=== PATIENT | female | born 1980 | race Caucasian/White ===

== ENCOUNTER 2025-04-14 07:11 | Day surgery (SDC) | payer OTHER ==
[2025-04-13 14:32] VITALS: BMI 28.3
[2025-04-14] MEDS ORDERED: Lidocaine 1% (PF) 30 ML VIAL ONE (08:27)
[2025-04-14] MEDS ORDERED: Ropivacaine 0.2% HCl/PF 20 ML ONE (08:27)
[2025-04-14] MEDS ORDERED: Ropivacaine 0.5% HCl/PF (150 MG/30 ML VIAL) ONE (08:27)
[2025-04-14] MEDS ORDERED: CEFAZOLIN 2 GM VIAL ONE (08:42)
[2025-04-14] MEDS ORDERED: fentaNYL PF 100 MCG/2 ML SYRINGE ONE (09:15)
[2025-04-14] MEDS ORDERED: Lidocaine 1% PF 5 ML VIAL ONE (09:15)
[2025-04-14] MEDS ORDERED: PROPOFOL 20 ML ONE (09:15)
[2025-04-14] MEDS ORDERED: Rocuronium Bromide 10 MG/ML (10ML VIAL) ONE (09:15)
[2025-04-14] MEDS ORDERED: Bupivacaine 0.25% HCL 30 ML VIAL ONE (09:19)
[2025-04-14] MEDS ORDERED: Ondansetron PF 4 MG/2 ML Vial ONE (09:20)
[2025-04-14] MEDS ORDERED: HYDROcodone/Acetaminophen 10/325 mg Tablet PO PRN ×2 (09:30)
[2025-04-14] MEDS ORDERED: Ondansetron PF 4 MG/2 ML Vial IVP PRN (09:30)
[2025-04-14] MEDS ORDERED: Ropivacaine 0.2% 550 ML 550 ML NERVE BLCK SCH (09:30)
[2025-04-14] MEDS ORDERED: PHENYLEPHRINE-NS 100 MCG/ML 10 ML SYRINGE ONE (09:57)
[2025-04-14] MEDS ORDERED: NEOSTIGMINE 3 MG/3 ML SYRINGE ONE (11:31)
[2025-04-14] MEDS ORDERED: Glycopyrrolate 0.2 MG/ML 5 ML SYRINGE ONE (11:31)
[2025-04-14] MEDS ORDERED: Ketorolac Tromethamine 30 MG (1 mL) VIAL IVP SCH (12:00)
[2025-04-14] MEDS ORDERED: HYDROcodone/Acetaminophen 5/325 mg Tablet ONE (13:49)
== END 2025-04-14 14:06 | disposition home or self-care (01) ==
LOC: SDC 07:11
PROVIDERS: ATTEND Orthopaedic Surgery
PROC: 0RNK4ZZ Release Left Shoulder Joint, Percutaneous Endoscopic Approach (ICD-10-PCS; principal; 2025-04-14)
PROC: 3E0T3BZ Introduction of Anesthetic Agent into Peripheral Nerves and Plexi, Percutaneous Approach (ICD-10-PCS; principal; 2025-04-14)
PROC: 0LQ24ZZ Repair Left Shoulder Tendon, Percutaneous Endoscopic Approach (ICD-10-PCS; principal; 2025-04-14)
DX: S46.012A Strain of muscle(s) and tendon(s) of the rotator cuff of left shoulder, initial encounter (principal); S42.252A Displaced fracture of greater tuberosity of left humerus, initial encounter for closed fracture; F17.200 Nicotine dependence, unspecified, uncomplicated; Z98.51 Tubal ligation status; X58.XXXA Exposure to other specified factors, initial encounter
CPT/HCPCS: A4306; C1713; J0169; J0665; J1100; J2250; J2405; J2704; J2795; J3010